=== PATIENT | male | born 1950 | race Two or more races ===

== ENCOUNTER 2017-04-10 02:25 | Emergency (ER) | payer SELFPAY ==
[2017-04-10] MEDS ORDERED: Sodium Chloride 0.9% 1,000 ML IV ONE (02:37)
--- NOTE | 2017-04-10 02:43 | ED Physician Chart ---
Chief Complaint/HPI - Patient Information Date Seen:: 04/10/17 Time Seen:: 02:30 Chief Complaint:: abdominal pain History of Present Illness:: Patient's had abdominal pain, right-sided chest pain and diffuse myalgia for 4 days. He has vomited several times and has had no diarrhea. Patient is homeless. Allergies:: Allergies Allergy/AdvReac Type Severity Reaction Status Date / Time No Known Allergies Allergy Verified 04/10/17 02:37 Historian:: Patient, EMS Review:: Nurse's Note Reviewed Review of Systems - Review of Systems General/Constitutional: No fever, No chills Skin: No skin lesions Head: No headache Eyes: No loss of vision ENT: No earache Neck: No neck pain Pulmonary: No SOB GI: Nausea, Vomiting, Pain G/U: No dysuria, No hematuria Musculoskeletal: Muscle pain Psychiatric: No prior psych history Hematopoietic: No bruising Allergic/Immuno: No urticaria Neurological: No syncope Past Medical History - Past Medical History Past Medical History: HTN, Other (throat cancer) Family History: None Social History: No Alcohol, Other (quit smoking) Surgical History: None Psychiatricy History: None Family Medical History - Family Member Mother History Unknown: Yes Physical Exam - Physical Examination General/Constitutional: Well-developed, well-nourished Other Gen/Cons comments:: Mild distress Head: Atraumatic Eyes: Lids, conjuctiva normal, PERRL Skin: Nl inspection, No rash, No skin lesions, No ecchymosis ENMT: External ears, nose nl, Oropharynx nl Neck: No nuchal rigidity Respiratory: Nl effort/Exclusion, Clear to Auscultation Cardio Vascular: RRR GI: No organomegaly, No hernia, Nondistended, No mass/bruits Other GI comments:: Epigastric and right upper quadrant tenderness : No CVA tenderness Extremities: Normal digits & nails Labs/Radiology/EKG Results - Lab Results Results: Laboratory Results - last 24 hr 04/10/17 04/10/17 04/10/17 02:46 02:46 02:46 WBC 9.7 RBC 3.49 L Hgb 9.1 L Hct 28.0 L MCV 80.4 MCH 26.0 MCHC Differential 32.3 RDW 14.9 Plt Count 430 H MPV 5.9 Band Neutrophils % 1 Neutrophils (Manual) 83 H Lymphocytes 11 L Monocytes 2 Eosinophils 3 Platelet Estimate INCREASED PLATELETS Sodium 134 L Potassium 3.7 Chloride 102 Carbon Dioxide 27.2 Anion Gap 8.5 BUN 15 Creatinine 0.7 Est GFR ( Amer) > 60.0 Est GFR (Non-Af Amer) > 60.0 BUN/Creatinine Ratio 21.4 Glucose 148 H Calcium 9.0 Magnesium Total Bilirubin 0.4 AST 30 ALT 22 Alkaline Phosphatase 100 Troponin I 0.01 Total Protein 7.8 Albumin 3.8 L Globulin 4.0 Albumin/Globulin Ratio 1.0 Lipase 46 Urine Source Urine Color Urine Clarity Urine pH Ur Specific [place] Urine Protein Urine Glucose (UA) Urine Ketones Urine Blood Urine Nitrate Urine Bilirubin Urine Urobilinogen Ur Leukocyte Esterase Urine RBC Urine WBC Ur Epithelial Cells Amorphous Sediment Urine Bacteria 04/10/17 04/10/17 02:46 03:45 WBC RBC Hgb Hct MCV MCH MCHC Differential RDW Plt Count MPV Band Neutrophils % Neutrophils (Manual) Lymphocytes Monocytes Eosinophils Platelet Estimate Sodium Potassium Chloride Carbon Dioxide Anion Gap BUN Creatinine Est GFR ( Amer) Est GFR (Non-Af Amer) BUN/Creatinine Ratio Glucose Calcium Magnesium 2.1 Total Bilirubin AST ALT Alkaline Phosphatase Troponin I Total Protein Albumin Globulin Albumin/Globulin Ratio Lipase Urine Source RANDOM Urine Color YELLOW Urine Clarity SLIGHT HAZY Urine pH 7.0 Ur Specific [place] 1.020 Urine Protein NEGATIVE Urine Glucose (UA) NEGATIVE Urine Ketones NEGATIVE Urine Blood NEGATIVE Urine Nitrate NEGATIVE Urine Bilirubin NEGATIVE Urine Urobilinogen 0.2 Ur Leukocyte Esterase NEGATIVE Urine RBC NONE SEEN Urine WBC 0-2 Ur Epithelial Cells OCCASIONAL Amorphous Sediment MODERATE URATES Urine Bacteria FEW - Radiology Results Results: Chest x-ray normal; CT scan of abdomen and pelvis showed severe esophagitis - EKG Interpretations Rate & Rhythm: normal sinus rhythm with a rate of 75 [place]: normal Comments:: ST elevation in lead II Assessment - Assessment General Assessment: at 0500 patient was sleeping and was awakened stated his pain was slightly improved. ED Septic Shock - . Is Septic Shock (SBP<90, OR Lactate>4 mmol\L) present?: No Reassessment (Disposition) - Reassessment Reassessment Condition:: Improved - Diagnosis Diagnosis:: Abdominal pain; esophagitis - Aftercare/Follow up Instructions Aftercare/Follow-Up Instructions:: Refer to Discharge Instructions - Patient Disposition Discharge/Transfer:: Home Condition at Disposition:: Stable, Improved
[2017-04-10] MEDS ORDERED: HYDROmorphone 1 mg/mL 1mL Syr IVP STA (02:45)
[2017-04-10] MEDS ORDERED: HYDROmorphone 1 mg/mL 1mL Syr ONE (02:47)
[2017-04-10 02:57] LABS: HEMOGLOBIN 9.1 gm/dL (13.2-17.3); MEAN CELL VOLUME 80.4 fl (80-99); MEAN CORPUSCULAR HGB CONC 32.3 pg (28.0-36.0); MEAN PLATELET VOLUME 5.9 fl; PLATELET COUNT 430 Th/cmm (150-400); RED BLOOD COUNT 3.49 Mil/cmm (4.30-5.70); RED CELL DISTRIBUTION WIDTH 14.9 % (11.5-20.0); WHITE BLOOD COUNT 9.7 Th/cmm (4.8-10.8)
[2017-04-10 03:11] LABS: ALKALINE PHOSPHATASE 100 U/L (34-104); ANION GAP 8.5 (7.0-16.0); BILIRUBIN,TOTAL 0.4 mg/dL (0.3-1.0); BUN - UREA NITROGEN 15 mg/dL (7-25); BUN/CREATININE RATIO 21.4; CARBON DIOXIDE 27.2 mEq/L (21.0-31.0); CHLORIDE 102 mEq/L (98-107); CREATININE - SERUM 0.7 mg/dL (0.7-1.3); GLUCOSE 148 mg/dL (70-105); LIPASE 46 U/L (11-82); POTASSIUM SERUM 3.7 mEq/L (3.5-5.1); SGOT 30 U/L (13-39); SGPT/ALT 22 U/L (7-52); SODIUM SERUM 134 mEq/L (136-145)
[2017-04-10 03:38] LABS: BAND NEUTROPHILE 1 % (0-10); EOSINOPHIL 3 % (0-5); NEUTROPHILS 83 % (40-80); PLATELET ESTIMATE INCREASED PLATELETS (NORMAL); TOTAL CELLS COUNTED 100
[2017-04-10 04:01] LABS: URINE BILIRUBIN NEGATIVE (NEGATIVE); URINE BLOOD NEGATIVE (NEGATIVE); URINE COLOR YELLOW; URINE GLUCOSE (UA) NEGATIVE (NEGATIVE); URINE KETONE NEGATIVE (NEGATIVE); URINE PROTEIN NEGATIVE (NEGATIVE); URINE UROBILINOGEN 0.2 E.U./dL (0.2 - 1.0)
[2017-04-10 04:02] LABS: URINE AMORPHOUS SEDIMENT MODERATE URATES (NONE SEEN); URINE BACTERIA FEW /hpf (NONE SEEN); URINE EPITHELIAL CELLS OCCASIONAL /lpf (FEW); URINE RBC NONE SEEN /hpf (0-5); URINE WBC 0-2 /hpf (0-5)
--- NOTE | 2017-04-10 09:26 | Diagnostic Imaging Report ---
Portable chest x-ray History: Shortness of breath Allowing for portable technique the heart size is normal. No focal pulmonary parenchymal processes. No hilar or mediastinal abnormalities. Stroke, CVA the distal portion of the right clavicle is not visualized. It is uncertain if this is related to prior surgery or congenital etiology. Impression: 1. No acute abnormalities 2. 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 It is uncertain if this is related to prior surgery or a congenital etiology.
--- NOTE | 2017-04-10 09:29 | Diagnostic Imaging Report ---
CT scan abdomen and pelvis without intravenous contrast HISTORY: Pain Total DLP equals 354 CTDI equals 6.9 Axial sections were obtained from the xiphoid process down to the pubic symphysis. Limited sections through the lower chest demonstrate marked thickening and apparent dilatation of the lower esophagus. Etiology uncertain. Neoplastic or inflammatory change cannot be excluded. Clinical correlation needed. The liver appears generous in size. No focal lesions. The spleen appears normal. Suboptimal delineation of the pancreatic margins due to the absence of oral/bowel contrast. No obvious focal lesions are seen. No significant focal renal lesions. Mildly distended stool-filled large bowel noted. Findings may be associated with constipation. The remainder of the pelvis demonstrates preservation of normal fat planes. No abnormal soft tissue masses or abnormal fluid collections. Degenerative changes seen throughout the spine. IMPRESSION: 1. Findings consistent with a thick wall dilated lower esophagus. Etiology uncertain. Neoplastic. A repeat clinical correlation and follow-up needed. 2. Mildly distended stool-filled large bowel that may be associated with constipation
== END 2017-04-10 06:00 | disposition home or self-care (01) ==
LOC: ER 02:25
DX: R10.13 Epigastric pain (principal); R10.11 Right upper quadrant pain; K20.9 Esophagitis, unspecified; I10 Essential (primary) hypertension; Z87.891 Personal history of nicotine dependence
CPT/HCPCS: 99285; 96374; 96375; 93005; 71010; 74176; 84484; 36415; 85007; 85027; 81001; 83690; 83735; 80053; J2405; J1170; J7030

== ENCOUNTER 2017-11-17 14:53 | Emergency (ER) | payer SELFPAY | END 2017-11-17 15:07 | disposition left against medical advice (07) | LOC: ER 14:53 | DX: R11.10 Vomiting, unspecified (principal); Z53.21 Procedure and treatment not carried out due to patient leaving prior to being seen by health care provider ==